=== PATIENT | male | born 1965 | race Caucasian/White ===

== ENCOUNTER 2019-07-25 13:55 | Emergency (ER) | payer SELFPAY ==
[~2019-07-25] VITALS: Wt 78.2 kg
[~2019-07-25 13:55] MED LIST: ACET325T33 PO; IBUP-1542 PO
[2019-07-25 14:39] VITALS: BP 110/63; PULSE 78; RESP 20
== END 2019-07-25 14:50 | disposition home or self-care (01) ==
LOC: E/R 13:55
DX: M25.562 Pain in left knee (principal)
CPT/HCPCS: 99282